=== PATIENT | male | born 1955 | race American Indian/Alaskan Native ===

== ENCOUNTER 2017-08-15 08:20 | Day surgery (SDC) | payer BC ==
[~2017-08-15 08:20] MED LIST: ANCEF/STERILE WATER 2 GM/20 ML IV NR; HEPARIN SUB-Q NR
[2017-08-15] MEDS ORDERED: DIPRIVAN 10 MG/ML IV ONE (09:03)
[2017-08-15] MEDS ORDERED: SUBLIMAZE ONE (09:03)
[2017-08-15] MEDS ORDERED: XYLOCAINE MPF 2% ONE (09:04)
[2017-08-15] MEDS ORDERED: ZEMURON IV ONE (09:04)
[2017-08-15] MEDS ORDERED: NACL BACTERIOSTATIC INFILTRATI ONE (09:42)
--- NOTE | 2017-08-15 09:44 | Anesthesia Consultation ---
Anesthesia Consult and Med Hx Date of service: 08/15/17 - Airway Anesthetic Teeth Evaluation: Good, Partials ROM Head & Neck: Adequate Mental/Hyoid Distance: Adequate Mallampati Class: Class II Intubation Access Assessment: Good - Pulmonary Exam CTA: Yes - Cardiac Exam Cardiac Exam: RRR - Pre-Operative Health Status ASA Pre-Surgery Classification: ASA3 Proposed Anesthetic Plan: General - Pulmonary Hx Respiratory Symptoms: No - Cardiovascular System Hx Hypertension: Yes (hyperlipidemia) - Central Nervous System Hx Psychiatric Problems: No - Endocrine Hx Insulin Dependent Diabetes: No Hx Non-Insulin Dependent Diabetes: No Hx Thyroid Disease: No Hx Hyperthyroidism: No - Other Systems Hx Alcohol Use: No Hx Substance Use: No Hx Cancer: No
--- NOTE | 2017-08-15 09:45 | Anesthesia Day of Surgery ---
Anesthesia Day of Surgery - Day of Surgery Patient Examined: Yes Patient H&P Reviewed: Yes Patient is NPO: Yes Beta Blockers: No Cardiac Clearance: No Pulmonary Clearance: No
[2017-08-15] MEDS ORDERED: MARCAINE 0.25% INFILTRATI ONE ×2 (10:01→11:47)
[2017-08-15] MEDS ORDERED: NEO SYNEPHRINE/NS Syringe(OR USE) IV ONE (10:52)
[2017-08-15] MEDS ORDERED: LACTATED RINGERS 1,000 ML IV SCH ×2 (11:00→15:00)
[2017-08-15] MEDS ORDERED: D5LR 1,000 ML IV SCH (11:00)
[2017-08-15] MEDS ORDERED: ePHEDrine SULFATE ONE (11:42)
[2017-08-15] MEDS ORDERED: DECADRON ONE ×2 (11:47)
[2017-08-15] MEDS ORDERED: NACL 0.9% IR ONE (11:47)
[2017-08-15] MEDS ORDERED: ROBINUL ONE ×2 (11:48)
[2017-08-15] MEDS ORDERED: NEOSTIGMINE ONE (11:48)
[2017-08-15] MEDS ORDERED: ZOFRAN ONE (11:48)
[2017-08-15] MEDS ORDERED: TORADOL ONE (11:59)
--- NOTE | 2017-08-15 12:15 | Short Stay Summary ---
Short Stay Documentation Date of service: 08/15/17 - History H&P: obtained from office - Allergies and Medications Current Medications: Allergies No Known Allergies Allergy (Verified 08/12/17 09:55) Home Medications Medication Instructions Recorded Confirmed Last Taken Type AtorvaSTATin [Lipitor] 10 mg PO QHS 08/12/17 08/15/17 08/14/17 23:00 History Losartan [Cozaar] 50 mg PO QDAY 08/12/17 08/15/17 08/14/17 20:00 History Tamsulosin [Flomax] 0.4 mg PO QDAY 08/12/17 08/15/17 08/14/17 20:00 History amLODIPine [Norvasc] 5 mg PO DAILY 08/12/17 08/15/17 08/14/17 20:00 History Arginine HCl [l-Arginine] 3 gm PO QDAY 08/15/17 08/15/17 08/13/17 History Calcium Carbonate [Calcium] 600 mg PO QDAY 08/15/17 08/15/17 08/13/17 History Multivit-Min/Iron Fum/Folic AC 1 each PO QDAY 08/15/17 08/15/17 08/13/17 History [Hcxsh-Ljjgrbn-Nptisngh Tablet] [place]-3S/Dha/Epa/Fish Oil [[place]-3 1 each PO QDAY 08/15/17 08/15/17 08/13/17 History Fish Oil 1,200 mg Sfgl] Panax Ginseng Root [Panax Ginseng] 600 mg PO QDAY 08/15/17 08/15/17 08/13/17 History Saw [place] Fruit [Saw [place]] 450 mg PO QDAY 08/15/17 08/15/17 08/13/17 History Active Medications Cefazolin Sodium (Ancef/Sterile Water 2 Gm/20 Ml) 2 gm IV PREOP NR Stop: 08/15/17 23:59 Heparin Sodium (Porcine) (Heparin) 5,000 unit SUB-Q PREOP NR Stop: 08/15/17 23:59 Last Admin: 08/15/17 10:08 Dose: 5,000 unit Lactated Ringer's (Lactated Ringers) 1,000 mls @ 100 mls/hr IV DIRECT LIZZIE Last Admin: 08/15/17 10:20 Dose: 100 mls/hr - Brief post op/procedure progress note Date of procedure: 08/15/17 Pre-op diagnosis: Left inguinal hernia Post-op diagnosis: same Procedure: Laparoscopic left inguinal hernia repair with mesh Anesthesia: VANIA, local Surgeon: ASHUTOSH COBURN Estimated blood loss: none Pathology: none Condition: stable - Disposition Condition at discharge: Good Disposition: DC-01 TO HOME OR SELFCARE Short Stay Discharge Plan Activity: no restrictions Diet: regular Wound: remove dressing (08/17/17 and then may shower) Durable Medical Equipment Needed Upon Discharge: other (ice pack to the left groin for 1-2 days to help with pain and swelling) Follow up with: CAMILO EWING MD [Primary Care Provider] - 7 Days ASHUTOHS COBURN MD [Staff Physician] - 7 Days Prescriptions: oxyCODONE /ACETAMINOPHEN [Percocet 5/325] 1 - 2 tab PO Q4HR PRN #40 tab PRN Reason: Pain
--- NOTE | 2017-08-15 12:33 | Post Anesthesia Evaluation ---
- Post Anesthesia Evaluation Patient Participated: Yes Airway Patent: Yes Stable Respiratory Function: Yes Nausea/Vomiting: Yes Temp > 96.8F: Yes Pain Manageable: Yes Adequeate Hydration: Yes Anesthesia Complications: No Patient on Ventilator: No ([id number])
[2017-08-15] MEDS ORDERED: PERCOCET 5/325 PO PRN (13:03)
--- NOTE | 2017-08-15 14:52 | Operative Report ---
PREOPERATIVE DIAGNOSIS: Left inguinal hernia. POSTOPERATIVE DIAGNOSIS: Left inguinal hernia. PROCEDURE: Laparoscopic left inguinal hernia repair with mesh. SURGEON: Ted Murrieta M.D. ANESTHESIA: General and local. ESTIMATED BLOOD LOSS: Minimal. SPECIMEN: None. DRAINS: None. IMPLANTS: Mesh. COMPLICATIONS: None. INDICATIONS: This is a 61-year-old gentleman who has a symptomatic left inguinal hernia who presents now for repair. OPERATIVE COURSE: The patient was brought to the operating room, identified, and placed in the supine position. General anesthesia was achieved. His abdomen was prepped and draped in usual manner. Prior to all incisions, the area was anesthetized with 0.25% Marcaine. A supraumbilical 10 mm incision was made using a Veress needle technique. The abdomen was insufflated to 15 mmHg pressure. A 10 mm trocar was inserted using a 30-degree 10 mm telescope. The other trocars were placed under direct vision, which included a left and right lateral 5 mm ports. The abdomen was explored. He has a sizable left-sided indirect inguinal hernia. No hernia on the other side. We proceeded to take down the peritoneal lining with sharp and blunt dissection. Once we had exposed the Santiago's ligament, we reduced the hernia sac with care being taken not to injure the gonadal vessels, vas deferens, inguinal vessels or nerves. Once we had the peritoneal lining completely down, we used a 3 inch x 5 inch piece of Parietex mesh, tacked it once to Santiago's ligament and twice across the intraabdominal wall. Once we had the mesh in good position, we then reperitonealized the abdomen with the tacker. Care was taken to make sure we never went too far laterally and injure the nerves. Once we were satisfied that the mesh was in good position with good coverage, no signs of other pathology, we removed the ports under direct vision. No signs of bleeding from the port sites. We evacuated the CO2. I closed the fascia in the 10 mm port site with 0 Vicryl suture and then closed the skin incisions with a 4-0 Vicryl suture, Steri-Strips, and bandage. He tolerated the procedure well without complications. JOB# [id number] JUAN/JOHANN
[2017-08-15] MEDS ORDERED: ZOFRAN IV ONE (15:00)
[2017-08-15 15:22] VITALS: BP 115/66
== END 2017-08-15 17:50 | disposition home or self-care (01) ==
LOC: OR 08:20
PROVIDERS: ATTEND Surgery
DX: K40.90 Unilateral inguinal hernia, without obstruction or gangrene, not specified as recurrent (principal); I10 Essential (primary) hypertension; E78.5 Hyperlipidemia, unspecified; N40.0 Benign prostatic hyperplasia without lower urinary tract symptoms
CPT/HCPCS: 49650; C1781; J0690; J1100; J1644; J1885; J2370; J2405; J2704; J2710; J3010; J7120